=== PATIENT | male | born 1990 | race Two or more races ===

== ENCOUNTER 2016-03-26 18:30 | Emergency (ER) | payer OTHER ==
[2016-03-26 18:44] VITALS: BP 146/92; PULSE 80; TEMP 98.4
[2016-03-26 18:51] VITALS: BMI 28.6
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
== END 2016-03-26 19:46 | disposition home or self-care (01) ==
LOC: EDMC 18:30
DX: M54.5 Low back pain (principal); M25.551 Pain in right hip; M25.531 Pain in right wrist; V49.40XA Driver injured in collision with unspecified motor vehicles in traffic accident, initial encounter; F17.200 Nicotine dependence, unspecified, uncomplicated
CPT/HCPCS: 72110; 99283